=== PATIENT | male | born 1980 ===

== ENCOUNTER 2018-07-30 09:01 | Emergency (ER) | payer SELFPAY ==
[2018-07-30] MEDS ORDERED: Proparacaine 0.5% Opth 15 ML BOT ONE (09:18)
[2018-07-30] MEDS ORDERED: Fluorescein Opthalmic Strip ONE (09:18)
== END 2018-07-30 10:29 | disposition home or self-care (01) ==
LOC: ERS 09:01
DX: T15.01XA Foreign body in cornea, right eye, initial encounter (principal)
CPT/HCPCS: 65205

== ENCOUNTER 2021-05-19 23:35 | Emergency (ER) | payer SELFPAY | END 2021-05-19 23:57 | LOC: ERS 23:35 | DX: Z02.89 Encounter for other administrative examinations (principal) | CPT/HCPCS: 99282 ==